=== PATIENT | male | born 1980 | race Caucasian/White ===

== ENCOUNTER 2023-03-05 13:12 | Emergency (ER) | payer OTHER ==
[2023-03-05] MEDS: Lidocaine 2% with EPINEPHrine 1:100,000 20 ML MDV INJECT ONE (14:00)
[2023-03-05] MEDS: Bacitracin Oint 1 GM U/D Packet TOP ONE (14:54)
== END 2023-03-05 15:10 | disposition home or self-care (01) ==
LOC: LL.ED 13:12
DX: S41.112A Laceration without foreign body of left upper arm, initial encounter (principal); W26.8XXA Contact with other sharp object(s), not elsewhere classified, initial encounter; Y93.01 Activity, walking, marching and hiking; Y99.0 Civilian activity done for income or pay
CPT/HCPCS: 12002; 99282; J3490